=== PATIENT | female | born 1990 | race Caucasian/White ===

== ENCOUNTER 2023-04-09 13:37 | Emergency (ER) | payer BC, SELFPAY ==
[2023-04-09 13:42] VITALS: BP 128/74; PULSE 72; RESP 16; TEMP 36.4; O2SAT 98; BMI 39.5
--- NOTE | 2023-04-09 13:57 | ED_ITS ---
HPI - Extremity Injury (Upper) General Time Seen by Provider: 13:57 Date Seen: 04/09/23 Chief Complaint: Extremity Pain/Injury, Upper Stated Complaint: Smashed finger Time Seen by Provider: 04/09/23 13:38 Source: patient and RN notes reviewed Mode of arrival: ambulatory Limitations: no limitations History of Present Illness HPI narrative: Patient was at work when she was on a ladder and some boxes came down, they fell crushing her finger either between the boxes in the wall ir the latter, patient is not completely sure. She states nothing else was injured during this incident. One of the boxes did bump her head but she states she has absolutely no symptoms. It is just her left 3rd finger at the tip that hurts. She states it feels hot. This happened prior to arrival. MD complaint: injury to: left and finger Related Data Home Medications Medication Instructions Recorded Confirmed cetirizine .ROUTE 04/09/23 escitalopram oxalate 10 mg tablet 10 mg PO DAILY 04/09/23 04/09/23 (Lexapro) fluticasone propion-salmeterol inhalation 04/09/23 lansoprazole PO 04/09/23 montelukast .ROUTE 04/09/23 Allergies Allergy/AdvReac Type Severity Reaction Status Date / Time Iodinated Contrast Media Allergy Intermediate Hives Verified 04/09/23 13:50 acetaminophen [From Tylenol] Allergy Mild Palpitation Verified 04/09/23 13:50 s amoxicillin [From Augmentin] Allergy Unknown Verified 04/09/23 13:50 clavulanic acid Allergy Unknown Verified 04/09/23 13:50 [From Augmentin] Review of Systems Narrative: As per HPI. PFSH PFSH Social History Smoking Status: Former smoker Do you use any of these nicotine containing products: None Second hand tobacco smoke exposure: No How often do you have a drink containing alcohol: never AUDIT-C Alcohol total score: 0 Non-prescribed substance use: denies use Exam Const: Vital Signs, click to edit/add: Vital Signs - 24 hr 04/09/23 13:42 Temperature 97.6 F Pulse Rate [Pulse Oximeter] 72 Respiratory Rate 16 Blood Pressure [Le ft Upper Arm] 128/74 Pulse Oximetry 98 Oxygen Delivery Me thod Room Air Patient is alert interactive no apparent distress, ambulatory into the ED of her own accord. Face atraumatic, speech normal. Inspection of her left hand reve als no ecchymosis, no open wounds, no erythema. It is the tip of her left 3rd finger that she states is problematic. See no visible abnormalities, no significant swelling. She can flex the finger, does seem like it hurts and she has maybe limiting her full flexion of the finger all the way in. She certainly does have full extension. Neurovascular seems to be intact on testing currently. There is no nail bed abnormality on inspection. Documenting provider has reviewed patient's vital signs: yes Course Course ED Course: Reviewed with patient that we will obtain an x-ray of this finger to rule out any bony pathology. If the x-ray is normal, will treat symptomatically and conservatively with ice and elevation as needed, Tylenol/ibuprofen per bottle directions for pain management. Reevaluation(s) Time of Reevaluation #1: 14:56 Reevaluation #1: Reviewed with patient that she has a small tuft fracture at the distal aspect of this finger. Was able to show her a picture of this. Did place her in a medium frog foam finger splint, she felt comfort with that. Vital Signs Vital signs: Initial Vital Signs Temperature 97.6 F 04/09/23 13:42 Temperature Source Temporal Artery Scan 04/09/23 13:42 Pulse Rate 72 04/09/23 13:42 Respiratory Rate 16 04/09/23 13:42 Blood Pressure 128/74 04/09/23 13:42 Blood Pressure Mean 92 04/09/23 13:42 Blood Pressure Position Sitting 04/09/23 13:42 Pulse Oximetry 98 04/09/23 13:42 Oxygen Delivery Method Room Air 04/09/23 13:42 Vital Signs Temperature 97.6 F 04/09/23 13:42 Pulse Rate 72 04/09/23 13:42 Respiratory Rate 16 04/09/23 13:42 Blood Pressure 128/74 04/09/23 13:42 Pulse Oximetry 98 04/09/23 13:42 Oxygen Delivery Method Room Air 04/09/23 13:42 Temperature 97.6 F 04/09/23 13:42 Pulse Rate 72 04/09/23 13:42 Respiratory Rate 16 04/09/23 13:42 Blood Pressure 128/74 09/22/23 13:42 Pulse Oximetry 98 04/09/23 13:42 Oxygen Delivery Method Room Air 04/09/23 13:42 MDM - Extremity Injury (Upper) Imaging Data XR left 3rd finger: Attestation: I have reviewed the pertinent imaging results. My impression: Tuft fracture noted on my preliminary review. Radiologist's impression: Patient: ARCHANA GARCIA Facility:?[facility] Patient ID:?[id number] Site Patient ID:?[id number]. Site :?[id number] Study:?XRay Extremity Left FINGER 3RD DIGIT-04/09/2023 2:22:59 PM Ordering Physician:?Thomas Quintero Final Report: Indication: Trauma. Technique: Left 3rd finger, 3 views. Comparison: None. Findings: Bones: Minimally displaced tuft fracture from the left 3rd finger distal phalanx. The distal fragment is volarly displaced and rotated slightly. No other fracture. Normal joint alignment. Joint spaces: Unremarkable. Soft tissues: Unremarkable. No radiodense foreign body. Suspect nail bed injury. Impression: Minimally displaced and rotated left 3rd finger tuft fracture. Dictated by Yakelin Suazo MD @ 04/09/2023 3:07:19 PM (Electronic Signature) Discharge Plan Discharge Clinical Impression: Closed fracture of tuft of distal phalanx of finger Patient Disposition: Home, Self-Care Condition: Stable Instructions: Finger Fracture (ED) Additional Instructions: Use splint for the next 4-6 weeks as needed for comfort. Do recommend follow-up for re-evaluation in about 7-10 days with primary provider or with Orthopedics if your primary provider is not comfortable with this. Ice and elevation to be used help minimize pain and swelling initially. Pain management with Tylenol and/or ibuprofen per bottle directions as needed. The orthopedic phone number is [phone] if you need to follow-up with them. Activity Level: Activity as Tolerated Discharge Diet: Regular Prescriptions: No Action escitalopram oxalate [Lexapro] 10 mg tablet 10 mg PO DAILY fluticasone propion-salmeterol [Advair Diskus] inhalation montelukast [Singulair] .ROUTE cetirizine [Zyrtec] .ROUTE lansoprazole PO Follow Up/Referrals: Provider,Not a Local [Primary Care Provider] - Stand Alone Forms: [employer] Info Instructions
--- NOTE | 2023-04-09 14:07 | CRLHL7_ITS ---
For Patients: As a result of the Cures Act, medical imaging exams and procedure reports are released immediately into your electronic medical record. You may view this report before your referring provider. If you have questions, please contact your health care provider. Indication: Trauma. Technique: Left 3rd finger, 3 views. Comparison: None. Findings: Bones: Minimally displaced tuft fracture from the left 3rd finger distal phalanx. The distal fragment is volarly displaced and rotated slightly. No other fracture. Normal joint alignment. Joint spaces: Unremarkable. Soft tissues: Unremarkable. No radiodense foreign body. Suspect nail bed injury. Impression: Minimally displaced and rotated left 3rd finger tuft fracture. Dictated by Yakelin Suazo MD @ 04/09/2023 3:07:19 PM (Electronically Signed)
== END 2023-04-09 15:05 | disposition home or self-care (01) ==
PROVIDERS: Emergency Provider Family Medicine
DX: S62.633A Displaced fracture of distal phalanx of left middle finger, initial encounter for closed fracture (principal); W23.0XXA Caught, crushed, jammed, or pinched between moving objects, initial encounter
CPT/HCPCS: 29130; 73140; 99283

== ENCOUNTER 2023-05-16 14:16 | Emergency (ER) | payer BC, SELFPAY ==
[2023-05-16 14:23] VITALS: BP 117/78; PULSE 82; RESP 16; TEMP 36.6; O2SAT 98
--- NOTE | 2023-05-16 14:30 | CRLHL7_ITS ---
For Patients: As a result of the Cures Act, medical imaging exams and procedure reports are released immediately into your electronic medical record. You may view this report before your referring provider. If you have questions, please contact your health care provider. Indication: Fifth finger injury TECHNIQUE: Three views of the right hand. FINDINGS: Soft tissue swelling in the 5th finger. No fracture, dislocation, or radiopaque foreign body. Dictated by Joaquin Chew MD @ 05/16/2023 3:06:49 PM (Electronically Signed)
--- NOTE | 2023-05-16 15:03 | ED_ITS ---
HPI - General Adult General Date Seen: 05/16/23 Chief complaint: Extremity Pain/Injury, Upper Stated complaint: hand injury Time Seen by Provider: 05/16/23 14:38 History of Present Illness HPI narrative: This is a 33-year-old female with a past medical history previous left distal phalanx fracture who presents to the ER today with a crush injury to her right 5th digit. She was at work today when she accidentally crushed her right pinky finger between a tray and the closing door of a large refrigerator at work. She suffered a pinching/crushing injury to the proximal phalanx and the distal phalanx of the finger. He was initially quite uncomfortable but she has been able to move it. No associated numbness or tingling. She has developed redness and swelling over the proximal and distal phalanxes. Related Data Home Medications Medication Instructions Recorded Confirmed cetirizine .ROUTE 04/09/23 escitalopram oxalate 10 mg tablet 10 mg PO DAILY 04/09/23 04/09/23 (Lexapro) fluticasone propion-salmeterol inhalation 04/09/23 lansoprazole PO 04/09/23 montelukast .ROUTE 04/09/23 Allergies Allergy/AdvReac Type Severity Reaction Status Date / Time Iodinated Contrast Media Allergy Intermediate Hives Verified 04/09/23 13:50 acetaminophen [From Tylenol] Allergy Mild Palpitation Verified 04/09/23 13:50 s amoxicillin [From Augmentin] Allergy Unknown Verified 04/09/23 13:50 clavulanic acid Allergy Unknown Verified 04/09/23 13:50 [From Augmentin] PFSH COUNT INCLUDES THE [facility] Social History Smoking Status: Former smoker Do you use any of these nicotine containing products: None Second hand tobacco smoke exposure: No How often do you have a drink containing alcohol: never AUDIT-C Alcohol total score: 0 Non-prescribed substance use: denies use Exam Narrative: Exam Narrative: Constitutional: Appears well-developed and well-nourished. Alert. Conversant. Non toxic. HENT: Head: Atraumatic. Nose: Nose normal. Mouth/Throat: Oral mucosa is clear and moist. no trismus. Pharynx normal. Tonsils symmetric. No tonsillar enlargement, erythema, or exudate. Eyes: Conjunctivae normal. EOM normal. Pupils equal, round, and reactive to light. No scleral icterus. Neck: Normal range of motion. Neck supple. No tracheal deviation present. Cardiovascular: Normal rate, regular rhythm. Symmetric radial artery pulses , normal distal capillary refill. Pulmonary/Chest: Effort normal. No stridor. No respiratory distress. RUE: Normal range of motion in her elbow, wrist, fingers. Normal flexion extension of the MCP, PIP, DI P joints. Tenderness over the proximal and distal phalanges without any bony crepitus. No deformity. There is a small superficial abrasion lupillo on the dorsal skin of the distal phalanx just proximal to the fingernail bed but no evidence for any deep laceration. No subungual hematoma. LUE: Normal range of motion. No tenderness. No deformity RLE: Normal range of motion. No edema. No tenderness. No deformity LLE: Normal range of motion. No edema. No tenderness. No deformity Lymph: No cervical adenopathy. Neurological: Alert and oriented to person, place, and time. Normal strength. CN II-VII intact. No sensory deficit. GCS eye subscore is 4. GCS verbal subscore is 5. GCS motor subscore is 6. Normal coordination intact ulnar, median, radial nerve sensory function. Intact digital nerve function. Skin: Skin is warm and dry. No rash noted. No pallor. Normal capillary refill. Psychiatric: Normal mood. Normal affect. Const: Vital Signs, click to edit/add: Vital Signs - 24 hr 05/16/23 14:23 Temperature 98 F Pulse Rate [Pulse Oximeter] 82 Respiratory Rate 16 Blood Pressure [Le ft Upper Arm] 117/78 Pulse Oximetry 98 Oxygen Delivery Me thod Room Air Course Vital Signs Vital signs: Initial Vital Signs Temperature 98 F 05/16/23 14:23 Temperature Source Temporal Artery Scan 05/16/23 14:23 Pulse Rate 82 05/16/23 14:23 Pulse Rhythm Regular 05/16/23 14:23 Respiratory Rate 16 05/16/23 14:23 Blood Pressure 117/78 05/16/23 14:23 Blood Pressure Mean 91 05/16/23 14:23 Blood Pressure Position Sitting 05/16/23 14:23 Pulse Oximetry 98 05/16/23 14:23 Oxygen Delivery Method Room Air 05/16/23 14:23 Vital Signs Temperature 98 F 05/16/23 14:23 Pulse Rate 82 05/16/23 14:23 Respiratory Rate 16 05/16/23 14:23 Blood Pressure 117/78 05/16/23 14:23 Pulse Oximetry 98 05/16/23 14:23 Oxygen Delivery Method Room Air 05/16/23 14:23 Temperature 98 F 05/16/23 14:23 Pulse Rate 82 05/16/23 14:23 Respiratory Rate 16 05/16/23 14:23 Blood Pressure 117/78 05/16/23 14:23 Pulse Oximetry 98 05/16/23 14:23 Oxygen Delivery Method Room Air 05/16/23 14:23 Medical Decision Making MDM Narrative Medical decision making narrative: Very pleasant 33-year-old female presenting to the ER today with a crushing injury to her right hand 5th digit that occurred at work just prior to arrival. She does have evidence for redness and swelling over the proximal and distal phalanxes. No evidence radiographically or clinically for any fracture or dislocation. She is neurovascularly intact in the hand. Suspect soft tissue injury or contusion. Fortunately no deep laceration requiring suture. No nail bed injury. No subungual hematoma. X-rays are fortunately negative for any fracture or dislocation. Patient is pleased her fingers not broken. Will manage supportively for now with rest, ice, [id number] pain relievers. She is feels comfortable with plan for discharge and outpatient monitoring. Precautions for return to the ER reviewed. Imaging Data X-ray right hand: Attestation: I have reviewed the pertinent imaging results. My impression: No acute fracture or dislocation. Radiologist's impression: FINDINGS: Soft tissue swelling in the 5th finger. No fracture, dislocation, or radiopaque foreign body. Discharge Plan Discharge Clinical Impression: Finger sprain Patient Disposition: Home, Self-Care Condition: Stable Instructions: Finger Sprain (ED) Additional Instructions: Use Tylenol or ibuprofen if needed for pain. Use an ice pack for 20 minutes every 3-4 hours for the next couple of days to reduce pain and swelling. If you have any concerns, please return to the ER or see her doctor right away for recheck. Prescriptions: No Action escitalopram oxalate [Lexapro] 10 mg tablet 10 mg PO DAILY fluticasone propion-salmeterol [Advair Diskus] inhalation montelukast [Singulair] .ROUTE cetirizine [Zyrtec] .ROUTE lansoprazole PO Follow Up/Referrals: Provider,Not a Local [Primary Care Provider] - Stand Alone Forms: [employer] Info Instructions
== END 2023-05-16 15:36 | disposition home or self-care (01) ==
LOC: ED 15:31
PROVIDERS: Emergency Provider Emergency Medicine
DX: S63.616A Unspecified sprain of right little finger, initial encounter (principal); W23.0XXA Caught, crushed, jammed, or pinched between moving objects, initial encounter
CPT/HCPCS: 73130; 99282; 99283